=== PATIENT | male | born 1975 | race Hispanic/Latino ===

== ENCOUNTER 2021-02-04 20:05 | Emergency (ER) | payer OTHER ==
[~2021-02-04] VITALS: Ht 177.8 cm; Wt 104.3 kg
[2021-02-04 20:12] VITALS: BP 158/93
[2021-02-04] MEDS ORDERED: FAMOTIDINE 20MG TAB 20 MG TAB PO ONE (21:00)
[2021-02-04] MEDS ORDERED: DiphenhydrAMINE HCL 50 MG/ML VIAL IM ONE (21:00)
[2021-02-04] MEDS ORDERED: PREDNISONE 20 MG TABLET PO ONE (21:00)
[2021-02-04] MEDS ORDERED: PRED20TA3 PO (21:00)
[2021-02-04 21:20] VITALS: BP 131/81
== END 2021-02-04 21:34 | disposition home or self-care (01) ==
LOC: EDH 20:05
DX: T78.49XA Other allergy, initial encounter (principal); Z79.52 Long term (current) use of systemic steroids; X58.XXXA Exposure to other specified factors, initial encounter
CPT/HCPCS: 96372; 99283; J1200